=== PATIENT | female | born 1975 | race African-American/Black ===

== ENCOUNTER 2023-06-27 07:35 | Emergency (ER) | payer MEDICAID, OTHER ==
[~2023-06-27] VITALS: Ht 165.1 cm; Wt 90.0 kg
[~2023-06-27 07:35] MED LIST: ERYT-141 MT
[2023-06-27 07:50] VITALS: O2SAT 100
[2023-06-27 08:20] LABS: BASOPHILS % 0.3 % (0.0-2.0); EOSINOPHILS % 0.5 % (0.0-5.0); HEMATOCRIT. 44.9 % (36.0-48.0); HEMOGLOBIN. 14.9 g/dL (12.0-16.0); LYMPHOCYTES % 17.1 % (20.0-50.0); MEAN CORPUSCULAR HEMOGLOBIN 27.1 pg (28.0-32.0); MEAN CORPUSCULAR HGB CONC 33.2 g/dL (31.0-37.0); MEAN CORPUSCULAR VOLUME 81.6 fL (81.0-99.0); MEAN PLATELET VOLUME 9.6 fl (7.4-10.4); MONOCYTES % 7.3 % (2.0-8.0); NEUTROPHILS % 74.8 % (40.0-76.0); PLATELET 228 x1000/uL (130-400); RED BLOOD CELL COUNT 5.51 mill/uL (4.2-5.4); RED CELL DISTRIBUTION WIDTH 15.1 % (11.6-14.6); WHITE BLOOD COUNT 6.6 x1000/uL (4.5-11.0)
[2023-06-27 08:26] LABS: CHLORIDE 108 mEq/L (98-107); POTASSIUM 3.2 mEq/L (3.5-5.1); SODIUM 141 mEq/L (136-145)
[2023-06-27 08:27] LABS: CALCIUM 9.5 mg/dL (8.7-10.4); CARBON DIOXIDE 25 mEq/L (21-32)
[2023-06-27 08:32] LABS: CREATININE 0.9 mg/dL (0.6-1.0); GLUCOSE 113 mg/dL (70-105); UREA NITROGEN BLOOD 6 mg/dL (9-23)
[2023-06-27 09:49] LABS: HCG SCREEN NEGATIVE
[2023-06-27 09:56] LABS: ALANINE AMINOTRANSFERASE 17 IU/L (10-49); ALBUMIN 4.4 g/dL (3.2-4.8); ASPARTATE AMINOTRANSFERASE 14 IU/L (<34); BILIRUBIN TOTAL 0.3 mg/dL (0.1-1.0); PROTEIN TOTAL 7.3 g/dL (6.0-8.3)
[2023-06-27 10:00] LABS: BILIRUBIN DIRECT < 0.1 mg/dL (<=3.0)
[2023-06-27] MEDS: ACETAMINOPHEN 325MG TABLET PO ONE (10:23)
[2023-06-27] MEDS: ONDANSETRON 4MG ODT PO ONE (10:23)
[2023-06-27 10:48] LABS: CLARITY URINE CLEAR (CLEAR); COLOR URINE YELLOW (YELLOW); GLUCOSE URINE NEGATIVE (NEGATIVE); KETONES URINE 2+ (NEGATIVE); LEUKOCYTE ESTERASE URINE TRACE (NEGATIVE); NITRITE URINE NEGATIVE (NEGATIVE); OCCULT BLOOD URINE 2+ (NEGATIVE); PROTEIN URINE TRACE (NEGATIVE); SPECIFIC GRAVITY URINE 1.021 (1.005-1.030); UROBILINOGEN URINE 0.2 E.U./dL (0.2-1.0)
[2023-06-27] MEDS: FAMOTIDINE 20MG TABLET PO ONE ×2 (10:55→13:48)
[2023-06-27 11:06] LABS: SQUAMOUS EPITHELIAL CELL URINE 2+ /lpf (RARE/1+); TRICHOMONAS URINE 3+
[2023-06-27 11:07] LABS: BACTERIA URINE TRACE
[2023-06-27] MEDS ORDERED: CIPR-263 MT (13:11)
[2023-06-27] MEDS ORDERED: METR-167 MT (13:11)
[2023-06-27] MEDS ORDERED: ONDA4TAB11 PO (13:11)
[2023-06-27 13:56] VITALS: BP 147/83; PULSE 61; RESP 18; TEMP 98.1
== END 2023-06-27 13:57 | disposition home or self-care (01) ==
LOC: ER 07:35
DX: K52.89 Other specified noninfective gastroenteritis and colitis (principal); N39.0 Urinary tract infection, site not specified; A59.9 Trichomoniasis, unspecified; D25.9 Leiomyoma of uterus, unspecified; Z90.49 Acquired absence of other specified parts of digestive tract
CPT/HCPCS: 80076; 80048; 81003; 81025; 84703; 83605; 83690; 85025; 36415; 71045; 74176; 76830; 76856; 99284; Q0162; Z7610 ×2

== ENCOUNTER 2023-07-12 07:23 | Emergency (ER) | payer MEDICAID ==
[~2023-07-12] VITALS: Ht 165.1 cm; Wt 93.3 kg
[~2023-07-12 07:23] MED LIST changes: +CIPR-263 MT; +METR-167 MT; +ONDA4TAB11 PO
[2023-07-12 07:32] VITALS: O2SAT 100
[2023-07-12] MEDS ORDERED: TOPUD PO (08:50)
[2023-07-12] MEDS: ACETAMINOPHEN 325MG TABLET PO ONE (09:12)
[2023-07-12 09:18] VITALS: BP 160/89; PULSE 73; RESP 16; TEMP 98.4
== END 2023-07-12 09:19 | disposition home or self-care (01) ==
LOC: ER 07:47
DX: S09.90XA Unspecified injury of head, initial encounter (principal); Y04.0XXA Assault by unarmed brawl or fight, initial encounter; Y93.89 Activity, other specified; Y92.89 Other specified places as the place of occurrence of the external cause; Y99.8 Other external cause status
CPT/HCPCS: 70450; 72125; 99284; Z7610 ×2

== ENCOUNTER 2023-07-26 11:29 | Emergency (ER) | payer MEDICAID ==
[~2023-07-26 11:29] MED LIST changes: +TOPUD PO
== END 2023-07-26 15:50 | disposition left against medical advice (07) ==
LOC: ER 14:48
DX: J10.1 Influenza due to other identified influenza virus with other respiratory manifestations (principal); Z53.21 Procedure and treatment not carried out due to patient leaving prior to being seen by health care provider